=== PATIENT | female | born 1965 ===

== ENCOUNTER 2022-05-23 07:32 | Outpatient (CLI) | payer OTHER | END 2022-05-23 07:36 | disposition home or self-care (01) | LOC: NUCLEAR 07:32 | PROVIDERS: ATTEND Internal Medicine Cardiovascular Disease | DX: I20.8 Other forms of angina pectoris (principal) | CPT/HCPCS: 78452; 93017; A9500 ==

== ENCOUNTER 2022-05-23 07:53 | Outpatient (CLI) | payer OTHER | END 2022-05-23 07:54 | disposition home or self-care (01) | LOC: LAB 07:53 | PROVIDERS: ATTEND Internal Medicine | DX: U07.1 COVID-19 (principal); B34.1 Enterovirus infection, unspecified ==